=== PATIENT | female | born 1980 | race Two or more races ===

== ENCOUNTER 2024-05-31 05:30 | Day surgery (SDC) | payer OTHER ==
[2024-05-26 10:07] LABS: PARTIAL THROMBOPLASTIN TIME 29.5 SECONDS (22.0-34.0); PROTHROMBIN TIME 10.9 SECONDS (9.0-11.5)
[2024-05-31] MEDS ORDERED: POVIDONE-IODINE 118 ML BOTT TOP ONE (07:55)
[2024-05-31] MEDS ORDERED: PROMETHAZINE HCL 50 MG/ML AMPUL IM ONE (10:00)
[2024-05-31] MEDS ORDERED: MORPHINE SULFATE 4 MG/ML VIAL IV PRN (10:00)
== END 2024-05-31 13:30 | disposition home or self-care (01) ==
LOC: CIR.AMB 05:30
PROVIDERS: ATTEND Obstetrics & Gynecology
DX: N84.0 Polyp of corpus uteri (principal); J45.909 Unspecified asthma, uncomplicated; Z88.6 Allergy status to analgesic agent